=== PATIENT | female | born 1995 | race Caucasian/White ===

== ENCOUNTER 2018-05-04 03:47 | Emergency (ER) | payer SELFPAY ==
[2018-05-04 03:52] VITALS: BP 127/82; PULSE 106; RESP 18; TEMP 98.1; O2SAT 98
--- NOTE | 2018-05-04 04:26 | PD ---
HPI Chief Complaint: Seizure Time Seen by Provider: 04:24 Travel History International Travel<30 days: No Contact w/Intl Traveler<30days: No Traveled to known affect area: No History of Present Illness HPI Patient is a 22-year-old female presents emergency department with a friend for evaluation of seizure-like activity 3 times tonight. Person is with her states that she has been doing cocaine and amphetamines and drinking tonight and had 3 episodes where her body was shaking very quickly, does not describe postictal phase. States his epidural wants time in the past. The patient admits that she knows she drinks too much and now she should do drugs but continues to do so anyways. Patient's friend states that she had to back the patient to come to the emergency department to be seen, this patient is currently intoxicated and of the influence of substances. Otherwise she is cooperative with exam and states she does not want to be here. Symptoms mild, resolved, associated signs symptoms in context as above. PFSH Past Medical History Diminished Hearing: No Immunizations Current: Yes Seizures: Yes ?: Unknown Past Surgical History Surgical History: No Previous Surgery Social History Alcohol Use: Yes Tobacco Use: Yes Substance Use: Yes (COKE) Allergies-Medications (Allergen,Severity, Reaction): Coded Allergies: No Known Allergies (Unverified , 05/04/18) Review of Systems Except as stated in HPI: all other systems reviewed are Neg Physical Exam Narrative GENERAL: Well-developed well-nourished no obvious distress SKIN: Focused skin assessment warm/dry. HEAD: Atraumatic. Normocephalic. No rae signs no raccoons eyes EYES: Pupils equal and round. No scleral icterus. No injection or drainage. ENT: No nasal bleeding or discharge. Mucous membranes pink and moist. NECK: Trachea midline. No JVD. Midline CT or L-spine tenderness peer CARDIOVASCULAR: Regular rate and rhythm. No murmur appreciated. RESPIRATORY: No accessory muscle use. Clear to auscultation. Breath sounds equal bilaterally. GASTROINTESTINAL: Abdomen soft, non-tender, nondistended. Hepatic and splenic margins not palpable. MUSCULOSKELETAL: No obvious deformities. No clubbing. No cyanosis. No edema. NEUROLOGICAL: Awake and alert. Cranial nerves II through XII grossly intact and nonfocal, 5 out of 5 strength in all 4 extremity's, cerebellar testing negative, no seizure activity seen in the emergency department. PSYCHIATRIC: Appropriate mood and affect; insight and judgment normal. Data Data Last Documented VS Vital Signs Date Time Temp Pulse Resp B/P (MAP) Pulse Ox O2 Delivery O2 Flow Rate FiO2 05/04/18 05:12 05/04/18 03:52 98.1 106 18 98 Room Air Orders Orders Ed Discharge Order (05/04/18 04:24) MDM Medical Decision Making Medical Screen Exam Complete: Yes Emergency Medical Condition: Yes Differential Diagnosis Seizure-like activity, epileptiform activity, alcohol intoxication, substance intoxication peer Narrative Course Patient room to the emergency department, she appears well albeit under the influence of substances, at this time is no indication of workup for this patient, she is neurologically nonfocal and needs to follow-up with [facility] or another substance abuse counseling center for cessation of her substance abuse. She verbalized understanding and agreement. Discussed return to ED criteria follow-up with a primary care physician. Stable for discharge Diagnosis Primary Impression: Seizure-like activity Additional Impressions: Substance abuse Alcoholism Disposition: 01 DISCHARGE HOME Condition: Stable Vicente Ford MD May 04, 2018 04:25
== END 2018-05-04 05:14 | disposition home or self-care (01) ==
LOC: NEPE 03:47
DX: R56.9 Unspecified convulsions (principal); F10.229 Alcohol dependence with intoxication, unspecified; F14.929 Cocaine use, unspecified with intoxication, unspecified; F15.929 Other stimulant use, unspecified with intoxication, unspecified
CPT/HCPCS: 99281